=== PATIENT | female | born 1990 | race Hispanic/Latino ===

== ENCOUNTER 2018-01-30 18:13 | Emergency (ER) | payer OTHER ==
[2018-01-30 18:24] VITALS: BP 134/74; PULSE 89; RESP 16; TEMP 99.7; O2SAT 97
--- NOTE | 2018-01-30 19:17 | ED PDOC ---
HPI: Influenza Time Seen by Provider: 01/30/18 18:33 Chief Complaint: Flu-like Symptoms Chief Complaint (Provider): Flu-like Symptoms History Per: Patient Exam Limitations: no limitations Onset/Duration Of Symptoms: Hrs (since this morning) Additional complaint(s):: 27 year old female presents to the ED for evaluation of fever and chills since this morning associated with nausea and cough. She reports a t-max of 103 degrees around 1500 today, which was also her last dose of Tylenol. Otherwise denies vomiting and diarrhea. PMD: [place] Past Medical History Reviewed: Historical Data, Nursing Documentation, Vital Signs Vital Signs: Last Vital Signs Temp 99.7 F H 01/30/18 18:21 Pulse 89 01/30/18 18:21 Resp 16 01/30/18 18:21 BP 134/74 01/30/18 18:21 Pulse Ox 97 01/30/18 18:21 - Medical History PMH: No Chronic Diseases - Surgical History Surgical History: No Surg Hx - Family History Family History: States: Unknown Family Hx - Home Medications Home Medications: Ambulatory Orders Medication Instructions Recorded Acetaminophen [Acetaminophen Extra 2 tab PO Q6 PRN #24 tablet 01/30/18 Strength] Ibuprofen [Motrin] 600 mg PO Q8 PRN #21 tab 01/30/18 Oseltamivir Phosphate [Tamiflu] 75 mg PO BID #9 capsule 01/30/18 - Allergies Allergies/Adverse Reactions: Allergies Allergy/AdvReac Type Severity Reaction Status Date / Time No Known Allergies Allergy Verified 01/30/18 18:23 Review of Systems ROS Statement: Except As Marked, All Systems Reviewed And Found Negative Constitutional: Positive for: Fever, Chills Respiratory: Positive for: Cough Gastrointestinal: Positive for: Nausea. Negative for: Vomiting, Diarrhea Physical Exam - Reviewed Nursing Documentation Reviewed: Yes Vital Signs Reviewed: Yes - Physical Exam Appears: Positive for: No Acute Distress Head Exam: Positive for: ATRAUMATIC, NORMOCEPHALIC Skin: Positive for: Normal Color Eye Exam: Positive for: Normal appearance Cardiovascular/Chest: Positive for: Regular Rate, Rhythm Respiratory: Positive for: Normal Breath Sounds. Negative for: Respiratory Distress Neurologic/Psych: Positive for: Alert, Oriented (x3) Medical Decision Making Medical Decision Making: Time: 1837 Initial Impression: flu-like symptoms Initial Plan: --Influenza A B swab --Rapid strep --Tamiflu cap 75mg PO 191 Influenza and strep tests negative. Scribe Attestation: Documented by Hanny Gonzalez, acting as a scribe for Candy Jenkins PA-C. Provider Scribe Attestation: All medical record entries made by the Scribe were at my direction and personally dictated by me. I have reviewed the chart and agree that the record accurately reflects my personal performance of the history, physical exam, medical decision making, and the department course for this patient. I have also personally directed, reviewed, and agree with the discharge instructions and disposition. - ECG O2 Sat by Pulse Oximetry: 97 (RA) Pulse Ox Interpretation: Normal Disposition - Clinical Impression Clinical Impression: Influenza-like symptoms - Patient ED Disposition Is Patient to be Admitted: No Counseled Patient/Family Regarding: Diagnosis, Rx Given - Disposition Disposition: Routine/Home Disposition Time: 19:16 Prescriptions: Acetaminophen [Acetaminophen Extra Strength] 2 tab PO Q6 PRN #24 tablet PRN Reason: Fever >100.4 F Ibuprofen [Motrin] 600 mg PO Q8 PRN #21 tab PRN Reason: Pain, Moderate (4-7) Oseltamivir Phosphate [Tamiflu] 75 mg PO BID #9 capsule Instructions: Flu, Adult (DC) Forms: [facility] ED School/Work Excuse
== END 2018-01-30 19:21 | disposition home or self-care (01) ==
LOC: H.ER 18:13
DX: J11.1 Influenza due to unidentified influenza virus with other respiratory manifestations (principal)